=== PATIENT | male | born 1990 | race Caucasian/White ===

== ENCOUNTER 2018-07-23 15:19 | Emergency (ER) | payer OTHER ==
[~2018-07-23] VITALS: Ht 170.2 cm; Wt 77.1 kg
[2018-07-23 15:19] VITALS: BP 135/75
[2018-07-23] MEDS ORDERED: IBUPROFEN 600 MG TABLET PO ONE (15:35)
[2018-07-23] MEDS: IBUPROFEN 600 MG TABLET PO ONE (15:39)
== END 2018-07-23 15:55 | disposition home or self-care (01) ==
LOC: ER 15:27
DX: S13.4XXA Sprain of ligaments of cervical spine, initial encounter (principal); Z60.2 Problems related to living alone; V49.59XA Passenger injured in collision with other motor vehicles in traffic accident, initial encounter; Y93.89 Activity, other specified; Y92.413 State road as the place of occurrence of the external cause; Y99.8 Other external cause status